=== PATIENT | female | born 1955 | race African-American/Black ===

== ENCOUNTER 2020-06-23 17:16 | Inpatient (IN) | payer MEDICARE, MEDICAID ==
[~2020-06-23] VITALS: Ht 152.4 cm; Wt 52.2 kg
[2020-06-23] MEDS ORDERED: SODIUM CHLORIDE 0.9% 1000ML BAG (SEPSIS BOLUS) IV ONE (18:00)
[2020-06-23 18:49] LABS: BASOPHILS % 0.9 % (0.0-2.0); EOSINOPHILS % 1.4 % (0.0-5.0); HEMATOCRIT. 22.6 % (36.0-48.0); HEMOGLOBIN. 7.4 g/dL (12.0-16.0); LYMPHOCYTES % 23.6 % (20.0-50.0); MEAN CORPUSCULAR HEMOGLOBIN 27.1 pg (28.0-32.0); MEAN CORPUSCULAR VOLUME 83.2 fL (81.0-99.0); MEAN PLATELET VOLUME 7.6 fl (7.4-10.4); MONOCYTES % 6.9 % (2.0-8.0); NEUTROPHILS % 67.2 % (40.0-76.0); PLATELET 596 x1000/uL (130-400); RED BLOOD CELL COUNT 2.71 mill/uL (4.2-5.4); RED CELL DISTRIBUTION WIDTH 15.6 % (11.6-14.6)
[2020-06-23 18:53] LABS: CHLORIDE 107 mEq/L (98-107)
[2020-06-23 18:58] LABS: INR 1.1; PARTIAL THROMBOPLASTIN TIME 25.7 sec (23.4-31.0); PROTHROMBIN TIME 11.8 sec (9.6-11.0)
[2020-06-23] MEDS ORDERED: KCL 10MEQ/50ML PREMIX 50 ML IV ONE (20:00)
[2020-06-23 20:15] LABS: BG BASE EXCESS -3.3 mmol/L (-2.0-2.0); BG FRACTION INSPIRED OXYGEN 40; BG HCO3 ACT 19.7 mmol/L (22.0-26.0); BG METHEMOGLOBIN 0.5 % (0.0-1.5); BG OXYHEMOGLOBIN 98.5 % (94.0-97.0); BG PO2 166.4 mmHg (75.0-100.0); BG TOTAL HEMOGLOBIN 7.5 g/dL (12.0-18.0); BG VENT MODE VENT - AC
[2020-06-24] VITALS (8 sets, daily range): BP systolic 102–158; BP diastolic 63–102
[2020-06-24 02:17] LABS: HEMATOCRIT 25.1 % (36.0-48.0); MEAN CORPUSCULAR HEMOGLOBIN 26.6 pg (28.0-32.0); MEAN CORPUSCULAR VOLUME 83.8 fL (81.0-99.0); PLATELET 588 x1000/uL (130-400); RED CELL DISTRIBUTION WIDTH 15.6 % (11.6-14.6)
[2020-06-24 02:25] LABS: TOTAL IRON BINDING CAPACITY 254 ug/dL (250-450)
[2020-06-24] MEDS ORDERED: IOHEXOL-350 100 ML BOTTLE ONE (04:44)
[2020-06-24 08:27] LABS: BG BASE EXCESS -1.4 mmol/L (-2.0-2.0); BG CARBOXYHEMOGLOBIN 0.2 % (0.5-1.5); BG DEOXYHEMOGLOBIN 0.9 % (0.0-5.0); BG HCO3 ACT 23.3 mmol/L (22.0-26.0); BG METHEMOGLOBIN 0.5 % (0.0-1.5); BG OXYGEN SATURATION 99.1 % (92.0-98.5); BG OXYHEMOGLOBIN 98.4 % (94.0-97.0); BG PCO2 38.6 mmHg (35.0-45.0); BG PH 7.398 (7.350-7.450); BG PO2 157.7 mmHg (75.0-100.0); BG SAMPLE SITE RIGHT RADIAL; BG TOTAL HEMOGLOBIN 7.8 g/dL (12.0-18.0); BG VENT MODE VENT - AC
[2020-06-24] MEDS ORDERED: ACETAMINOPHEN 325MG TABLET PO PRN (12:30)
[2020-06-24] MEDS ORDERED: ONDANSETRON HCL 4MG/2ML INJ IV PRN (12:30)
[2020-06-24] MEDS ORDERED: RACEPINEPHRINE 2.25% 0.5ML NEB VIAL HHN PRN (13:15)
[2020-06-24] MEDS ORDERED: POTASSIUM CHLORIDE INJ 40 MEQ in SODIUM CHLORIDE 0.9% 250 ML IV SCH (14:00)
[2020-06-24] MEDS ORDERED: MULT-1146 MT (14:18)
[2020-06-24] MEDS ORDERED: PROM25TA13 GT (14:18)
[2020-06-24] MEDS ORDERED: [UNRECOGNIZED DRUG - CODE] GT (14:18)
[2020-06-24] MEDS ORDERED: CARB100T4 GT (14:18)
[2020-06-24] MEDS ORDERED: ASCO500C15 GT (14:18)
[2020-06-24] MEDS ORDERED: ACET250T3 GT (14:18)
[2020-06-24] MEDS ORDERED: METO5SOL19 GT (14:18)
[2020-06-24] MEDS ORDERED: LEVO25TA7 GT (14:18)
[2020-06-24] MEDS ORDERED: FAMO20TA8 GT (14:18)
[2020-06-24] MEDS ORDERED: CEFTRIAXONE 1,000 MG in DEXTROSE 5% WATER 50 ML IV SCH ×2 (15:00→19:00)
[2020-06-24] MEDS ORDERED: AZITHROMYCIN 500 MG in DEXT 5% WATER 250 ML IV SCH ×2 (15:00→19:00)
[2020-06-24 16:07] LABS: BASOPHILS % 0.7 % (0.0-2.0); EOSINOPHILS % 0.7 % (0.0-5.0); HEMATOCRIT. 30.1 % (36.0-48.0); HEMOGLOBIN. 9.7 g/dL (12.0-16.0); LYMPHOCYTES % 20.5 % (20.0-50.0); MEAN CORPUSCULAR HEMOGLOBIN 27.8 pg (28.0-32.0); MEAN CORPUSCULAR VOLUME 86.1 fL (81.0-99.0); MEAN PLATELET VOLUME 7.7 fl (7.4-10.4); MONOCYTES % 6.6 % (2.0-8.0); NEUTROPHILS % 71.5 % (40.0-76.0); PLATELET 573 x1000/uL (130-400); RED BLOOD CELL COUNT 3.49 mill/uL (4.2-5.4); RED CELL DISTRIBUTION WIDTH 16.4 % (11.6-14.6)
[2020-06-24 16:19] LABS: CHLORIDE 109 mEq/L (98-107)
[2020-06-24] MEDS ORDERED: HALOPERIDOL LACTATE 5MG/ML VIAL IM PRN ×2 (18:00)
[2020-06-24] MEDS: IPRATROPIUM/ALBUTEROL 0.5-3(2.5)MG/3ML NEB HHN SCH (20:15)
[2020-06-24] MEDS ORDERED: LORAZEPAM 2MG/ML CPJ IV PRN (20:15)
[2020-06-24] MEDS ORDERED: LEVETIRACETAM 500MG PREMIX 100 ML IV SCH (21:00)
[2020-06-24] MEDS ORDERED: MORPHINE SULFATE 2 MG/ML CPJ (NOT FOR IM USE) IV PRN (22:00)
[2020-06-24] MEDS: LORAZEPAM 2MG/ML CPJ IV PRN (22:32)
[2020-06-24 23:00] LABS: BG BASE EXCESS -5.8 mmol/L (-2.0-2.0); BG CARBOXYHEMOGLOBIN 0.3 % (0.5-1.5); BG DEOXYHEMOGLOBIN 0.3 % (0.0-5.0); BG FRACTION INSPIRED OXYGEN 100; BG HCO3 ACT 18.9 mmol/L (22.0-26.0); BG METHEMOGLOBIN 0.3 % (0.0-1.5); BG OXYGEN SATURATION 99.7 % (92.0-98.5); BG OXYHEMOGLOBIN 99.1 % (94.0-97.0); BG PCO2 34.1 mmHg (35.0-45.0); BG PH 7.361 (7.350-7.450); BG PO2 403.8 mmHg (75.0-100.0); BG SAMPLE SITE LEFT RADIAL; BG TOTAL HEMOGLOBIN 10.5 g/dL (12.0-18.0); BG VENT MODE VENT - AC
[2020-06-24] MEDS: LEVETIRACETAM 500MG PREMIX 100 ML IV SCH (23:59)
[2020-06-25] VITALS (11 sets, daily range): BP systolic 107–136; BP diastolic 47–77
[2020-06-25] MEDS: IPRATROPIUM/ALBUTEROL 0.5-3(2.5)MG/3ML NEB HHN SCH ×4 (04:35→16:00)
[2020-06-25 07:25] LABS: BASOPHILS % 0.4 % (0.0-2.0); LYMPHOCYTES % 13.8 % (20.0-50.0); MEAN CORPUSCULAR HEMOGLOBIN 27.6 pg (28.0-32.0); MEAN CORPUSCULAR VOLUME 85.7 fL (81.0-99.0); MEAN PLATELET VOLUME 7.5 fl (7.4-10.4); MONOCYTES % 5.8 % (2.0-8.0); PLATELET 537 x1000/uL (130-400); RED BLOOD CELL COUNT 3.27 mill/uL (4.2-5.4); RED CELL DISTRIBUTION WIDTH 16.2 % (11.6-14.6)
[2020-06-25 07:39] LABS: CHLORIDE 112 mEq/L (98-107)
[2020-06-25] MEDS: LEVETIRACETAM 500MG PREMIX 100 ML IV SCH (10:12)
[2020-06-25] MEDS: LORAZEPAM 2MG/ML CPJ IV PRN (13:42)
== END 2020-06-25 18:15 | DRG 720 ==
LOC: ER 17:16 → 5EST 20:23 → EDBEDREQ 20:27 → EDBEDREQTM 20:27 → ENRESERV 06-24 09:57
PROVIDERS: ADMIT Internal Medicine; ATTEND Internal Medicine
PROC: 5A1945Z Respiratory Ventilation, 24-96 Consecutive Hours (ICD-10-PCS; principal; 2020-06-23)
PROC: 30233N1 Transfusion of Nonautologous Red Blood Cells into Peripheral Vein, Percutaneous Approach (ICD-10-PCS; 2020-06-24)
DX: A41.9 Sepsis, unspecified organism (principal); J96.21 Acute and chronic respiratory failure with hypoxia; I13.0 Hypertensive heart and chronic kidney disease with heart failure and stage 1 through stage 4 chronic kidney disease, or unspecified chronic kidney disease; G80.9 Cerebral palsy, unspecified; J18.9 Pneumonia, unspecified organism; C34.90 Malignant neoplasm of unspecified part of unspecified bronchus or lung; C79.51 Secondary malignant neoplasm of bone; D62 Acute posthemorrhagic anemia; R04.2 Hemoptysis; E87.6 Hypokalemia; J98.09 Other diseases of bronchus, not elsewhere classified; G40.909 Epilepsy, unspecified, not intractable, without status epilepticus; R00.8 Other abnormalities of heart beat; E03.9 Hypothyroidism, unspecified; K21.9 Gastro-esophageal reflux disease without esophagitis; M41.9 Scoliosis, unspecified; R13.10 Dysphagia, unspecified; I25.10 Atherosclerotic heart disease of native coronary artery without angina pectoris; F03.90 Unspecified dementia, unspecified severity, without behavioral disturbance, psychotic disturbance, mood disturbance, and anxiety; I50.22 Chronic systolic (congestive) heart failure; N18.9 Chronic kidney disease, unspecified; Z99.11 Dependence on respirator [ventilator] status; Z87.01 Personal history of pneumonia (recurrent); Z74.01 Bed confinement status; Z79.899 Other long term (current) drug therapy; Z85.118 Personal history of other malignant neoplasm of bronchus and lung; Z86.73 Personal history of transient ischemic attack (TIA), and cerebral infarction without residual deficits; Z93.0 Tracheostomy status; Z20.828 Contact with and (suspected) exposure to other viral communicable diseases
CPT/HCPCS: 36415; 36600; 71045; 71275; 80048; 80053; 80061; 82375; 82378; 82805; 83540; 83550; 83605; 83735; 83880; 84145; 84484; 85025; 85027; 85044; 86850; 86900; 86920; 87070; 87426; 87635; 93005; 93306; 96372; 99291; J0456; J0696; J1630; J1953; J2060; J2270; J3480; J7030; J7040; J7050; J7060; P9016; Q9967